=== PATIENT | male | born 1955 | race Caucasian/White ===

== ENCOUNTER 2018-07-26 01:18 | Emergency (ER) | payer SELFPAY ==
[~2018-07-26] VITALS: Ht 172.7 cm; Wt 65.8 kg
[2018-07-26 01:32] VITALS: BP 132/88
--- NOTE | 2018-07-26 01:55 | Emergency Room Report ---
History of Present Illness General Chief Complaint: Medical Clearance Source: Patient Present Illness HPI Patient present for medical clearance for booking Patient was found to have laceration to the right upper eyelid just below the eyebrow Patient does not recall how he sustained the injury denies any headache denies any chest pain Denies any focal weakness Allergies: Coded Allergies: No Known Allergies (Unverified , 07/26/18) Patient History Past Medical History: see triage record Pertinent Family History: none Reviewed Nursing Documentation: PMH: Agreed; PSxH: Agreed Nursing Documentation-PMH Past Medical History: No History, Except For Review of Systems All Other Systems: negative except mentioned in HPI Physical Exam Vital Signs Date Time Temp Pulse Resp B/P (MAP) Pulse Ox O2 Delivery O2 Flow Rate FiO2 07/26/18 01:27 98.1 99 18 132/88 99 Room Air Sp02 EP Interpretation: reviewed, normal General Appearance: well appearing Head: other - Abrasion to the right upper eyelid Eyes: bilateral eye PERRL, bilateral eye EOMI ENT: hearing grossly normal, normal pharynx Neck: full range of motion, supple Respiratory: lungs clear Cardiovascular #1: regular rate, rhythm Gastrointestinal: non tender, soft Musculoskeletal: normal inspection Neurologic: alert, oriented x3, responsive Skin: other - Abrasion to the upper eyelid there is some mild oozing of blood well-controlled with minimal pressure, Lymphatic: no adenopathy Procedures Laceration/Wound Repair Laceration/Wound Repair : Consent: Verbal Wound Location: face Wound's Depth, Shape: superficial Wound Length (cm): 1 Wound Explored: clean Wound Repaired With: Steri-strips, Dermabond Progress Total length approximately 1 cm area was cleansed appears to be more consistent with an abrasion, after Dermabond apply to the surface Steri-Strip was placed on top with good coverage Medical Decision Making Diagnostic Impression: Primary Impression: Medical clearance for incarceration Additional Impression: Laceration ER Course Patient had wound care as noted above Remains awake alert Neurologically appropriate GCS 15 and therefore further imaging was not obtained patient disposition to [facility] for close care Last Vital Signs Date Time Temp Pulse Resp B/P (MAP) Pulse Ox O2 Delivery O2 Flow Rate FiO2 07/26/18 01:32 99 18 Room Air 07/26/18 01:32 98.1 132/88 99 Status: improved Disposition: D/C TO LAW ENFORCEMENT IN [facility] Condition: Improved Jojo Sousa DO Jul 26, 2018 01:55
[2018-07-26 02:26] VITALS: BP 132/88
== END 2018-07-26 02:07 ==
LOC: EMR 01:30
DX: Z02.89 Encounter for other administrative examinations (principal); S01.111A Laceration without foreign body of right eyelid and periocular area, initial encounter; X58.XXXA Exposure to other specified factors, initial encounter; Y92.89 Other specified places as the place of occurrence of the external cause
CPT/HCPCS: 99283